=== PATIENT | male | born 1970 | race Caucasian/White ===

== ENCOUNTER 2023-10-02 13:21 | Emergency (ER) | payer MEDICAID ==
[~2023-10-02] VITALS: Ht 182.9 cm; Wt 81.8 kg
[~2023-10-02 13:21] MED LIST: iohexol 350MG/ML 100ml bottle IV ONE
[2023-10-02 13:23] VITALS: TEMP 99
--- NOTE | 2023-10-02 16:12 | NUR ---
[facility] all questions answered at this time.
--- NOTE | 2023-10-02 16:45 | NUR ---
pt provided with juice
[2023-10-02 17:13] VITALS: BP 121/78; PULSE 90; RESP 16; O2SAT 94
[2023-11-02] MEDS ORDERED: iohexol 350MG/ML 100ml bottle IV ONE (08:00)
== END 2023-10-02 17:14 | disposition home or self-care (01) ==
LOC: ER 13:21
DX: K42.9 Umbilical hernia without obstruction or gangrene (principal); K59.00 Constipation, unspecified; R10.9 Unspecified abdominal pain
CPT/HCPCS: 74176; 74178; 99285; Q9967